=== PATIENT | male | born 1960 | race Caucasian/White ===

== ENCOUNTER 2022-06-30 23:12 | Emergency (ER) | payer MEDICARE, SELFPAY ==
[2022-06-30 23:15] VITALS: BP 141/103; PULSE 88; RESP 18; TEMP 36.6; O2SAT 92; BMI 43.9
--- NOTE | 2022-06-30 23:41 | ED_ITS ---
HPI - Extremity Problem General: Chief complaint: Extremity Problem,Nontraumatic Stated complaint: bilateral feet swelling Time Seen by Provider: 06/30/22 23:28 History of Present Illness: 61-year-old male patient comes in today with chronic foot pain and being out of his medication. Patient is traveling from [place] to [place]. Patient reports that he has left his medications at home for his chronic pain which is buprenorphine. Patient appears nontoxic. Patient is just seeking medication to get him through until he can get to [place]. Associated symptoms: Deny chest pain or fever(s) Review of Systems Const: Denies: fever(s) Card: Denies: chest pain Resp: Denies: dyspnea Musc: Reports: extremity pain Physical Exam Const: COMMON NORMALS: alert HENMT: COMMON NORMALS: normocephalic HEAD & SCALP: normocephalic Neck/C-Spine: COMMON NORMALS: no meningeal signs Resp: COMMON NORMALS: normal respiratory effort and clear to auscultation bilaterally AUSCULTATION: clear to auscultation bilaterally Cardio: COMMON NORMALS: regular rate RATE: regular rate Back/Pelvis: COMMON NORMALS: thoracic and lumbar spine normal to inspection Extremity: LEFT LOWER EXTREMITY: Yes foot & digits (Mild swelling to the left lower extremity, prompt capillary refill.) Neuro: SENSORIUM/ORIENTATION: Yes alert MENINGEAL SIGNS: Yes no meningeal signs Skin: COMMON NORMALS: turgor normal GENERAL SKIN EXAM: turgor normal Course Vital Signs: Vital signs: Vital Signs Temperature 97.8 F 06/30/22 23:15 Pulse Rate 88 06/30/22 23:15 Respiratory Rate 18 06/30/22 23:15 Blood Pressure 141/103 06/30/22 23:15 Pulse Oximetry 92 06/30/22 23:15 Oxygen Delivery Me thod Room Air 06/30/22 23:15 MDM - Extremity (Nontraumatic) Medical Decision Making 61-year-old male patient comes in today with complaints of pain to the left foot and swelling. On exam patient has some mild swelling to the dorsal left foot. Patient has a injury to the foot that he receives chronic pain management for. Patient states that he left his pain medications in [place]. Patient at this time is in transit to [place]. Vital signs are normal except for some mild elevation of blood pressure. Patient appears nontoxic. Differential diagnosis includes not limited to traumatic arthritis, contusion, pain seeking behavior. Patient was given 2 doses of Suboxone to treat for his buprenorphine medication loss. I instructed patient I cannot write for a prescription due to him traveling and this being a chronic medication. Recommended patient follow-up with primary care provider when he reaches [place] for further evaluation and treatment. Discharge Plan Discharge Patient Disposition: Home Clinical Impression: Chronic pain in left foot Condition: Stable Discharge Orders: Discharge ED (Routine); Ordered 06/30/22 Ordered By: William Westbrook Patient Instructions: Pain Management Activity Restrictions/Additional Instructions: Continue with routine care. When arriving at [place] try to get set up with a primary care provider to manage her medications. Coding Level of Care Code ED Darkroom Technician for Aureliano Santamaria
[2022-06-30] MEDS: buprenorphine-naloxone 4-1 mg Film 2 EACH SUBLINGUAL (23:48)
[2022-06-30 23:55] VITALS: BP 121/83; PULSE 91; RESP 20; O2SAT 94
--- NOTE | 2022-07-03 12:42 | DCPLANNER ---
sales analytics manager was triggered to speak with patient about getting established with a primary care physician - patient does not live in the area.
== END 2022-06-30 23:56 | disposition home or self-care (01) ==
PROVIDERS: Emergency Provider Nurse Practitioner Family
DX: G89.29 Other chronic pain (principal); M79.672 Pain in left foot
CPT/HCPCS: 99283; J0573